=== PATIENT | male | born 1990 | race Two or more races ===

== ENCOUNTER 2020-06-12 01:46 | Emergency (ER) | payer SELFPAY ==
[~2020-06-12] VITALS: Ht 172.7 cm; Wt 81.6 kg
[~2020-06-12 01:46] MED LIST: CYCLOBENZAPRINE10 MG ORAL; IBUPROFEN600 MG ORAL; NKM; NORCO 5-325 TA1 EACH ORAL
--- NOTE | 2020-06-12 01:56 | NUR ---
ED Nurse Note: Pt walked into ED due to laceration on right hand palm and left finger. pt was skateboarding and got caught on barbwire.
[2020-06-12] MEDS ORDERED: Lidocaine 1% Plain 30 ml INJ ONE (02:00)
[2020-06-12] MEDS ORDERED: Tetanus/Diptheria/Pertussis IM ONE (02:00)
[2020-06-12] MEDS ORDERED: HYDROcodone/Acetamin 5/325 tab ORAL ONE (02:00)
--- NOTE | 2020-06-12 02:17 | Emergency Room Report ---
History of Present Illness General Chief Complaint: Laceration Source: Patient Present Illness [facility] This is a 29-year-old male who is right-hand dominant. He presents with chief complaint of laceration to bilateral hands. He was trying to climb over a barbed wire fence into a school yard so he can skateboard. He slipped and sustained a laceration to his hand. He sustained a puncture wound to his right hand and laceration to his left ring finger. This occurred just prior to arrival. Pain is 10 out of 10. Worse with movement. Better with rest. Tetanus is not up-to-date. No other injury. Allergies: Coded Allergies: No Known Allergies (Unverified , 03/17/13) COVID-19 Screening Contact w/high risk pt: No Experienced COVID-19 symptoms?: No COVID-19 Testing performed ADDICTION PSYCHIATRIST: No Patient History Past Medical History: none, see triage record, old chart reviewed Past Surgical History: none Pertinent Family History: none Social History: Denies: smoking Immunizations: other Reviewed Nursing Documentation: PMH: Agreed; PSxH: Agreed Nursing Documentation-PMH Past Medical History: No Stated History Review of Systems Eye: Denies: eye pain, blurred vision ENT: Denies: ear pain, nose congestion, throat swelling Respiratory: Denies: cough, shortness of breath Cardiovascular: Denies: chest pain, palpitations Gastrointestinal: Denies: abdominal pain, diarrhea, nausea, vomiting Musculoskeletal: Denies: back pain, joint pain Skin: Denies: rash Neurological: Denies: headache, numbness Endocrine: Denies: increased thirst, increased urine Hematologic/Lymphatic: Denies: easy bruising All Other Systems: negative except mentioned in HPI Physical Exam Vital Signs Date Time Temp Pulse Resp B/P (MAP) Pulse Ox O2 Delivery O2 Flow Rate FiO2 06/12/20 01:48 98.2 99 20 145/78 (100) 100 Room Air Vitals unremarkable Sp02 EP Interpretation: reviewed, normal General Appearance: well appearing, no apparent distress, alert Head: normocephalic, atraumatic Eyes: bilateral eye PERRL, bilateral eye EOMI ENT: hearing grossly normal, normal pharynx Neck: full range of motion, supple, no meningismus Respiratory: chest non-tender, lungs clear, normal breath sounds Cardiovascular #1: regular rate, rhythm, no murmur Gastrointestinal: normal bowel sounds, non tender, no mass, no organomegaly, no bruit, non-distended Musculoskeletal: back normal, normal range of motion, gait/station normal, other - Right palm: There is a puncture wound to the mid midportion of the palm. No FB. Left ring finger: 6 cm flap lac at base of prox phalanx. this extends through the webspace and into the dorsal aspect of the 4th mcp joint. no tendon lac. no fb. FROM. Psychiatric: mood/affect normal Procedures Laceration/Wound Repair Laceration/Wound Repair #1: Consent: Verbal Wound Location: upper extremity - Right hand Wound's Depth, Shape: superficial, into muscle Wound Length (cm): 1 Wound Explored: clean Irrigated w/ Saline (ccs): 500 Anesthesia: 1% Lidocaine Volume Anesthetic (ccs): 2 Suture Size/Type: 6:0 Number of Sutures: 2 Layer Closure?: No Patient Tolerated: Well Complications: None Laceration/Wound Repair #2: Consent: Verbal Wound Location: upper extremity - Left fourth and fifth fingers Wound's Depth, Shape: into muscle, linear Wound Length (cm): 6 Wound Explored: clean Irrigated w/ Saline (ccs): 1000 Anesthesia: 1% Lidocaine Volume Anesthetic (ccs): 6 Wound Repaired With: sutures Suture Size/Type: 6:0, proline Number of Sutures: 19 Patient Tolerated: Well Complications: None Medical Decision Making Diagnostic Impression: Primary Impression: Hand laceration Qualified Codes: S61.411A - Laceration without foreign body of right hand, initial encounter Additional Impression: Laceration of finger of left hand Qualified Codes: S61.215A - Laceration without foreign body of left ring finger without damage to nail, initial encounter ER Course Patient presents with a laceration to his left hand and right palm. No foreign body. No tendon laceration seen. Tetanus updated here. We will put him on antibiotics also. Last Vital Signs Date Time Temp Pulse Resp B/P (MAP) Pulse Ox O2 Delivery O2 Flow Rate FiO2 06/12/20 01:48 98.2 99 20 145/78 (100) 100 Room Air Status: improved Disposition: HOME, SELF-CARE Condition: Stable Scripts Ibuprofen* (MOTRIN*) 600 Mg Tablet 600 MG ORAL Q6H PRN for For Pain, #30 TAB 0 Refills Prov: Eduard Mcleod MD 06/12/20 Cephalexin* (KEFLEX*) 500 Mg Capsule 500 MG ORAL TID, #21 CAP Prov: Eduard Mcleod MD 06/12/20 Patient Instructions: Laceration Care, Adult Additional Instructions: Keep wound clean. Suture out in 7 to 10 days. Follow-up with your doctor or come back here to have it removed. Return if symptoms worsen. Eduard Mcleod MD Jun 12, 2020 02:16
[2020-06-12 02:33] VITALS: BP 145/78
[2020-06-12] MEDS ORDERED: CEPHALEXIN500 MG ORAL (03:21)
[2020-06-12] MEDS ORDERED: IBUPROFEN600 M1 ORAL (03:21)
[2020-06-12 03:25] VITALS: BP 145/78
--- NOTE | 2020-06-12 03:25 | NUR ---
ER DISCHARGE NOTE: Patient is cleared to be discharged per ERMD, pt is aox4, on room air, with stable vital signs. pt was given dc and prescription instructions, pt was able to verbalize understanding, pt id band removed without complications. pt is able to ambulate with steady gait. pt took all belongings.
== END 2020-06-12 03:25 | disposition home or self-care (01) ==
LOC: EMR 02:15
DX: S61.411A Laceration without foreign body of right hand, initial encounter (principal); S61.215A Laceration without foreign body of left ring finger without damage to nail, initial encounter; W45.8XXA Other foreign body or object entering through skin, initial encounter; Y93.39 Activity, other involving climbing, rappelling and jumping off; Y92.219 Unspecified school as the place of occurrence of the external cause
CPT/HCPCS: 12002; 90471; 90715; 99282; J2001